=== PATIENT | female | born 1990 | race Caucasian/White ===

== ENCOUNTER 2021-07-03 14:51 | Inpatient (IN) | payer OTHER ==
[~2021-07-03] VITALS: Ht 170.2 cm; Wt 84.4 kg
[~2021-07-03 14:51] MED LIST: COLACE100 MG PO; FEOSOL325 MG PO; FLORINEF0.1 MG PO; HYDROCORTISONE5 MG PO; IBUPROFEN800 MG PO; IRON325 M1 PO; LEVOTHYROXINE75 MC1 PO; LIOTHYRONINE SO5 MCG PO; MOTRIN600 MG PO; PREPLUS CA-FE1 EACH PO
[2021-07-03 15:45] LABS: BILIRUBIN NEGATIVE (NEGATIVE); BLOOD 2+ Ery/uL (NEGATIVE); CLARITY CLEAR (CLEAR); COLOR YELLOW (YELLOW); GLUCOSE (U) NORMAL (NORMAL); LEUKOCYTES NEGATIVE Leu/uL (NEGATIVE); NITRITE NEGATIVE (NEGATIVE); PROTEIN 1+ mg/dL (NEGATIVE); SPECIFIC GRAVITY <=1.005 (1.001-1.030); UROBILINOGEN 0.2 mg/dL (0.2-1.0)
[2021-07-03 16:00] LABS: BACTERIA 2+; SQUAMOUS EPITHELIAL CELLS >50
[2021-07-03 17:06] LABS: HCT 35.2 % (37.0-47.0); MCH 33.9 pg (25.0-31.0); MCHC 34.1 g/dL (32.0-36.0); MCV 99.4 fL (78.0-100.0); MPV 9.7 fL (6.0-9.5); RBC 3.54 M/uL (4.20-5.40); RDW 12.8 % (11.5-14.0); WBC 9.9 K/uL (4.0-10.5)
[2021-07-03 17:21] LABS: ALBUMIN 3.1 g/dL (3.4-5.0); BILIRUBIN - TOTAL 0.3 mg/dL (0.2-1.0); BUN/CREAT RATIO (CALC) 15.7 RATIO; CREATININE 0.51 mg/dL (0.51-0.95); GLOBULIN (CALCULATION) 3.3 g/dL; POTASSIUM 4.2 mmol/L (3.5-5.1); TOTAL PROTEIN 6.4 g/dL (6.4-8.2)
[2021-07-04 10:00] LABS: HCT 29.7 % (37.0-47.0); HGB 10.4 g/dl (12.5-16.0); MPV 9.6 fL (6.0-9.5); RBC 3.15 M/uL (4.20-5.40); RDW 14.6 % (11.5-14.0)
[2021-07-04 10:03] LABS: MCV 94.3 fL (78.0-100.0); WBC 18.2 K/uL (4.0-10.5)
[2021-07-04 15:27] LABS: MCHC 35.5 g/dL (32.0-36.0); MCV 93.1 fL (78.0-100.0); MPV 9.7 fL (6.0-9.5); RBC 3.33 M/uL (4.20-5.40); RDW 15.1 % (11.5-14.0); WBC 19.5 K/uL (4.0-10.5)
[2021-07-04 15:33] LABS: INR 1.03 (0.9-1.2); PROTHROMBIN TIME 12.9 SECONDS (11.8-13.4); PTT 26.1 SECONDS (24.4-34.7)
[2021-07-04 16:31] LABS: HCT 30.9 % (37.0-47.0); HGB 10.9 g/dl (12.5-16.0); MCH 32.4 pg (25.0-31.0); MCHC 35.3 g/dL (32.0-36.0); MPV 9.8 fL (6.0-9.5); RBC 3.36 M/uL (4.20-5.40); RDW 15.1 % (11.5-14.0); WBC 19.7 K/uL (4.0-10.5)
[2021-07-04 16:44] LABS: INR 1.04 (0.9-1.2); PTT 26.4 SECONDS (24.4-34.7)
[2021-07-04 19:59] LABS: HCT 30.4 % (37.0-47.0); HGB 10.8 g/dl (12.5-16.0); MCH 32.8 pg (25.0-31.0); MCHC 35.5 g/dL (32.0-36.0); MCV 92.4 fL (78.0-100.0); MPV 9.6 fL (6.0-9.5); RBC 3.29 M/uL (4.20-5.40); RDW 15.4 % (11.5-14.0); WBC 20.6 K/uL (4.0-10.5)
[2021-07-04 20:12] LABS: INR 1.02 (0.9-1.2); PROTHROMBIN TIME 12.8 SECONDS (11.8-13.4); PTT 26.7 SECONDS (24.4-34.7)
[2021-07-05 06:16] LABS: HCT 29.2 % (37.0-47.0); HGB 10.2 g/dl (12.5-16.0); MCH 32.3 pg (25.0-31.0); MCHC 34.9 g/dL (32.0-36.0); MCV 92.4 fL (78.0-100.0); MPV 9.6 fL (6.0-9.5); RBC 3.16 M/uL (4.20-5.40); RDW 15.4 % (11.5-14.0)
== END 2021-07-06 12:25 | disposition home or self-care (01) | DRG 797 ==
LOC: FOD 14:51 → FOB 14:52 → FOD 15:08 → FOB 15:09
PROVIDERS: Obstetrics & Gynecology; ADMIT Specialist
PROC: 10D17ZZ Extraction of Products of Conception, Retained, Via Natural or Artificial Opening (ICD-10-PCS; 2021-07-04)
PROC: 30233N1 Transfusion of Nonautologous Red Blood Cells into Peripheral Vein, Percutaneous Approach (ICD-10-PCS; 2021-07-04)
PROC: 0HQ9XZZ Repair Perineum Skin, External Approach (ICD-10-PCS; 2021-07-04)
PROC: 10E0XZZ Delivery of Products of Conception, External Approach (ICD-10-PCS; principal; 2021-07-04 03:45)
DX: O42.02 Full-term premature rupture of membranes, onset of labor within 24 hours of rupture (principal); O72.1 Other immediate postpartum hemorrhage; Z37.0 Single live birth; D62 Acute posthemorrhagic anemia; E27.40 Unspecified adrenocortical insufficiency; O99.354 Diseases of the nervous system complicating childbirth; Z3A.39 39 weeks gestation of pregnancy; O70.0 First degree perineal laceration during delivery; O90.81 Anemia of the puerperium; O99.284 Endocrine, nutritional and metabolic diseases complicating childbirth; E03.9 Hypothyroidism, unspecified; E28.2 Polycystic ovarian syndrome; G43.909 Migraine, unspecified, not intractable, without status migrainosus; O99.892 Other specified diseases and conditions complicating childbirth; M79.7 Fibromyalgia
CPT/HCPCS: 36415; 36430; 80053; 81001; 84112; 85384; 85610; 85730; 86850; 86900; 86901; 86922; 90686; J1100; J1720; J2001; J2405; J2590; J2704; J3010; J7120; P9016; U0002